=== PATIENT | male | born 1940 | race Caucasian/White ===

== ENCOUNTER 2017-12-27 10:17 | Outpatient (CLI) ==
--- NOTE | 2017-12-27 11:06 | DI ---
EXAM: Four views of the right knee. History: Right knee pain and trauma. Findings: No acute fracture or dislocation. Superior patellar enthesiopathy. Anterior soft tissue swelling. Joint spaces are preserved. Impression: 1. No acute osseous abnormality. 2. Anterior soft tissue swelling
== END 2017-12-27 10:18 | disposition home or self-care (01) ==
LOC: RAD 10:17
PROVIDERS: ATTEND Family Medicine
DX: M25.561 Pain in right knee (principal); M25.461 Effusion, right knee

== ENCOUNTER 2018-05-28 07:54 | Outpatient (CLI) ==
--- NOTE | 2018-05-28 15:39 | MRI ---
EXAM: Lumbar spine MRI without contrast. HISTORY: Low back pain and right hip pain. COMPARISON: CT abdomen and pelvis 10/02/2011. TECHNIQUE: Multiplanar, multisequence MR images were acquired lumbar spine without contrast. FINDINGS: Conus medullaris ends at L1 and has normal morphology and signal intensity. 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 The lumbar vertebra normal in height , AP alignment and intrinsic bone marrow signal. There is 2.8 mm degenerative anterolisthesis of L4 on L5. Small ventral and lateral osteophytes are present in the lumbar spine and there is desiccatio n of the intervertebral discs and mild disc space narrowing at L3-4. The partially visualized liver, spleen and kidneys are unremarkable. There are no paravertebral mass es. The aorta is mildly ectatic with atherosclerosis. L1-2: There is a minor posterior disc bulge that is asymmetric to the left which narrows the inferio r left neural foramen. There is mild left and minor right neural foraminal stenosis. There is no ce ntral canal stenosis. L2-3: There is a mild disc bulge that narrows the inferior neural foramina bilaterally and causes mi ld left and minor right neural foraminal stenosis. There is no central canal stenosis. L3-4: There is a mild disc bulge and mild bilateral facet arthropathy, greater on the left. There i s mild right and mild-moderate left neural foraminal stenosis. There is no central canal stenosis. L4-5: There is anterolisthesis of L4 on L5 and there is a mild disc bulge/pseudo disc bulge and mode rate bilateral facet arthropathy and ligamentum flavum hypertrophy with small bilateral facet effusio ns. In this patient with a developmentally narrow canal, there is moderate central canal stenosis an d mild to moderate bilateral foraminal stenosis, greater on the right. AP diameter of the thecal sac is 5.8 mm. L5-S1: The intervertebral disc is normal. There is mild to moderate left and mild right hypertrophi c facet arthropathy and ligamentum flavum hypertrophy and tiny bilateral facet effusions. The thecal sac is small at this level without additional stenosis. The neural foramina are patent. IMPRESSION: 1. 2.8 mm degenerative anterolisthesis L4 on L5 due to moderate bilateral hypertrophic facet arthrop athy. 2. 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 3. Mild to moderate left L3-4 and mild to moderate bilateral L4-5 neural foraminal stenosis.
== END 2018-05-28 07:55 | disposition home or self-care (01) ==
LOC: RAD 07:54
PROVIDERS: ATTEND Family Medicine
DX: M54.5 Low back pain (principal); M25.551 Pain in right hip; M54.16 Radiculopathy, lumbar region

== ENCOUNTER 2018-09-19 11:37 | Outpatient (CLI) | END 2018-09-19 11:38 | disposition home or self-care (01) | LOC: LAB 11:37 | PROVIDERS: ATTEND Family Medicine | DX: K52.9 Noninfective gastroenteritis and colitis, unspecified (principal); E86.0 Dehydration; Z79.899 Other long term (current) drug therapy | CPT/HCPCS: 36415; 80053; 81001; 85025 ==